=== PATIENT | female | born 1985 | race American Indian/Alaskan Native ===

== ENCOUNTER 2022-12-28 15:23 | Emergency (ER) | payer OTHER ==
[~2022-12-28] VITALS: Ht 147.3 cm; Wt 90.7 kg
== END 2022-12-28 18:25 | disposition home or self-care (01) ==
LOC: ER 15:23
PROVIDERS: General Practice
DX: J06.9 Acute upper respiratory infection, unspecified (principal); Z88.8 Allergy status to other drugs, medicaments and biological substances; Z20.822 Contact with and (suspected) exposure to COVID-19

== ENCOUNTER 2025-01-17 09:35 | Emergency (ER) | payer OTHER ==
[~2025-01-17] VITALS: Ht 147.3 cm; Wt 97.5 kg
[2025-01-17 09:47] VITALS: BP 98/71
[2025-01-17] MEDS ORDERED: DEXAMETHASONE SODIUM PHOSPHATE 4 MG/ML VIAL IM ONE (10:15)
[2025-01-17] MEDS ORDERED: LIDOCAINE HCL VISCOUS 20MG/ML BLIST 15ML MM ONE ×2 (10:15→10:37)
[2025-01-17] MEDS ORDERED: CEFTRIAXONE SODIUM 1,000 MG VIAL IM ONE (10:15)
[2025-01-17] MEDS ORDERED: DEXAMETHASONE SODIUM PHOSPHATE 4 MG/ML VIAL ONE (10:36)
[2025-01-17] MEDS ORDERED: CEFTRIAXONE SODIUM 1,000 MG VIAL ONE (10:37)
[2025-01-17 11:15] LABS: BASO % 0.3 % (0.1-1.2); EOS # 0.25 (0.04-0.54); EOS % 2.8 % (0.7-7.0); LYMPH # 2.05 (1.18-3.74); LYMPH % 22.9 % (19.3-53.1); MEAN PLATELET VOLUME 9.00 fl (9.4-12.4); MONO # 0.92 (0.24-0.82); MONO % 10.3 % (4.7-12.5); NEUT # 5.67 (1.56-6.13); NEUT % 63.4 % (34.0-71.1); RED CELL DISTRIBUTION WIDTH 14.5 % (11.6-14.4)
[2025-01-17 11:48] LABS: ALT/SGPT 16.0 U/L (12-78); AST/SGOT 14.0 U/L (15-37); BILIRUBIN TOTAL 0.26 mg/dL (0.3-1.2); BUN CREA RATIO 14.0 (7.0-25.0); CREATININE SERUM 0.56 mg/dL (0.55-1.02); GFR 119.9; GLOBULINA 4.1 G/DL (2.4-3.5); GLUCOSE FASTING 103.0 mg/dL (65-100); OSMOLALITY SERUM 278.0 MOSM/KG (275-295)
[2025-01-17 12:29] LABS: COVID-19 AG NEGATIVE (NEGATIVE)
[2025-01-17] MEDS ORDERED: AMOX1TAB5 PO (12:53)
[2025-01-17 13:10] VITALS: O2SAT 100
== END 2025-01-17 13:11 | disposition home or self-care (01) ==
LOC: ER 09:35
DX: B34.9 Viral infection, unspecified (principal); J06.9 Acute upper respiratory infection, unspecified; Z20.822 Contact with and (suspected) exposure to COVID-19; Z88.8 Allergy status to other drugs, medicaments and biological substances